=== PATIENT | male | born 1985 | race Two or more races ===

== ENCOUNTER 2019-03-31 19:30 | Emergency (ER) | payer SELFPAY ==
[2019-03-31 19:52] VITALS: BP 111/93; TEMP 97.9; BMI 30.7
[2019-03-31] MEDS ORDERED: LACTATED RINGERS SOLUTION 1000 ML INFUS.BAG IV ONE (20:49)
--- NOTE | 2019-03-31 20:53 | PDOC ---
History of Present Illness - General Chief Complaint: Syncope/Near Syncope Stated Complaint: SYNCOPE Time Seen by Provider: 03/31/19 20:17 History Source: Patient, Family, Spouse - History of Present Illness Initial Comments: 03/31/19 23:25 Mr. Flannery is a 33 y/o [place]alese speaking man with no PMH presenting after a syncopal episode at the [facility] with his family. He is accompanied by his as well as several other family members who they were with throughout the day. Past History - Past Medical History Allergies/Adverse Reactions: Allergies Allergy/AdvReac Type Severity Reaction Status Date / Time No Known Drug Allergies Allergy Verified 03/31/19 21:07 COPD: No - Immunization History Immunization Up to Date: (unknown) - Suicide/Smoking/Psychosocial Hx Smoking History: Current every day smoker Have you smoked in the past 12 months: Yes Number of Cigarettes Smoked Daily: 0 Information on smoking cessation initiated: Yes Hx Alcohol Use: No Drug/Substance Use Hx: Yes (hookah) Review of Systems - Review of Systems Able to Perform ROS?: Yes Comments:: 03/31/19 23:24 ROS: GENERAL/CONSTITUTIONAL: No fever or chills. No weakness. HEAD, EYES, EARS, NOSE AND THROAT: No change in vision. No ear pain or discharge. No sore throat. CARDIOVASCULAR: No chest pain or shortness of breath RESPIRATORY: No cough, wheezing, or hemoptysis. GASTROINTESTINAL: No nausea, vomiting, diarrhea or constipation. GENITOURINARY: No dysuria, frequency, or change in urination. MUSCULOSKELETAL: No joint or muscle swelling or pain. No neck or back pain. SKIN: No rash NEUROLOGIC: Headache. No vertigo, loss of consciousness, or change in strength/ sensation. ENDOCRINE: No increased thirst. No abnormal weight change HEMATOLOGIC/LYMPHATIC: No anemia, easy bleeding, or history of blood clots. ALLERGIC/IMMUNOLOGIC: No hives or skin allergy. *Physical Exam - Vital Signs Last Vital Signs Temp Pulse Resp BP Pulse Ox 97.9 F 118 H 14 111/93 95 03/31/19 19:46 03/31/19 19:46 03/31/19 19:46 03/31/19 19:46 03/31/19 19:46 - Physical Exam Comments: 03/31/19 23:13 PE: GENERAL: Awake, alert, and fully oriented, in no acute distress HEAD: No signs of trauma, normocephalic, atraumatic EYES: PERRLA, EOMI, sclera anicteric, conjunctiva clear ENT: Auricles normal inspection, hearing grossly normal, nares patent, oropharynx clear without exudates. Moist mucosa NECK: Normal ROM, supple, no lymphadenopathy, JVD, or masses LUNGS: No distress, speaks full sentences, clear to auscultation bilaterally HEART: Regular rate and rhythm, normal S1 and S2, no murmurs, rubs or gallops, peripheral pulses normal and equal bilaterally. ABDOMEN: Soft, nontender, normoactive bowel sounds. No guarding, no rebound. No masses EXTREMITIES : Normal inspection, Normal range of motion, no edema. No clubbing or cyanosis NEUROLOGICAL: Cranial nerves II through XII grossly intact. Normal speech, normal gait, no focal sensorimotor deficits SKIN: Warm, Dry, normal turgor, no rashes or lesions noted ED Treatment Course - LABORATORY CBC & Chemistry Diagram: 03/31/19 21:19 03/31/19 21:19 - RADIOLOGY Radiology Studies Ordered: Category Date Time Status HEAD CT WITHOUT CONTRAST [CT] Stat CT Scan 03/31/19 20:48 Ordered Medical Decision Making - Medical Decision Making 03/31/19 23:12 33 y/o M with no PMH presenting s/p syncopal episode, with Plan: CBC CMP EKG Cardiac Profile CT Head Ofirmev 1g IV LR 1L bolus Bedside cardiac echo Orthostatic vitals Dispo: Pending labs, imaging --- BP L arm - 139/89 BP R arm - 137/81 HR laying flat - 113 HR standing - 130 --- Cardiac echo: no pericardial effusion noted. R ventricle < L ventricle. Good squeeze noted, normal ejection fraction noted. Ultrasound conducted with Dr. Miller. --- CBC - WBC - 13.2 CMP - wnl EKG - wnl Troponin - negative On reassessment, HR 100. Plan to reassess HR after 1L LR. Likely discharge with PCP follow up. 03/31/19 23:37 On reassessment, HR 88. Discussed with Dr. Scott. Plan for outpatient follow up with close PCP follow up. *DC/Admit/Observation/Transfer Diagnosis at time of Disposition: Syncope Qualifiers: Syncope type: unspecified Qualified Code(s): R55 - Syncope and collapse - Discharge Dispostion Disposition: HOME Condition at time of disposition: Fair Decision to Admit order: No - Referrals - Patient Instructions Printed Discharge Instructions: DI for Syncope in Adults (Fainting) Additional Instructions: Usted fue evaluado en la paola de urgencias despues de desmallar. Evaluamos a kenyon niveles de tiffany, tomamos un CT de pascal jayme, y evaluamos a kenyon sintomas y todo a vuelto normal. Por favor ve a pascal doctor de cabezera la semana que viene. Regresa a la paola de urgencias si empiezas a tener dolor de jayme severa, dolor en pascal pecho, fiebres altos, confusion, o si se desmalla de nuevo. Print Language: TAMAZIGHT - Post Discharge Activity
[2019-03-31 21:25] LABS: BASO % 0.5 % (0-2.0); EOS % 0.1 % (0-4.5); HEMATOCRIT 44.9 % (35.4-49); HEMOGLOBIN 15.4 GM/dL (11.7-16.9); LYMPH % 11.4 % (8-40); MCH 28.9 pg (25.7-33.7); MCHC 34.2 g/dl (32.0-35.9); MEAN CELL VOLUME 84.6 fl (80-96); MEAN PLT VOLUME 7.3 fl (7.5-11.1); MONO % 4.2 % (3.8-10.2); NEUT % 83.8 % (42.8-82.8); PLATELET COUNT 326 K/MM3 (134-434); RBC 5.31 M/mm3 (4.00-5.60); RDW 14.3 % (11.9-15.9); WHITE BLOOD COUNT 13.9 K/mm3 (4.0-10.0)
[2019-03-31 21:53] LABS: ALBUMIN 4.4 g/dl (3.4-5.0); ALK PHOS 72 U/L (45-117); ANION GAP 6 MMOL/L (8-16); BILIRUBIN,TOTAL 0.2 mg/dL (0.2-1); BLOOD UREA NITROGEN 15.8 mg/dL (7-18); CALCIUM 9.9 mg/dL (8.5-10.1); CHLORIDE 104 mmol/L (98-107); CO2 29 mmol/L (21-32); CREATININE 1.2 mg/dL (0.55-1.3); GLUCOSE,RANDOM 102 mg/dL (74-106); POTASSIUM 3.9 mmol/L (3.5-5.1); SGOT/AST 21 U/L (15-37); SGPT/ALT 32 U/L (13-61); SODIUM 138 mmol/L (136-145); TOT PROT 7.8 g/dl (6.4-8.2)
[2019-03-31] MEDS ORDERED: ACETAMINOPHEN 1000 MG/100 ML VIAL (NON FORMULARY) IVPB ONE (22:08)
--- NOTE | 2019-03-31 22:19 | PDOC ---
Documentation entered by Syed Simon SCRIBE, acting as scribe for Sruthi Scott MD. Sruthi Scott MD: This documentation has been prepared by the aparnae, Syed Simon SCRIBE, under my direction and personally reviewed by me in its entirety. I confirm that the documentation accurately reflects all work, treatment, procedures, and medical decision making performed by me. Attending Attestation - Resident Resident Name: Kenneth Villasenor - ED Attending Attestation I have performed the following: I have examined & evaluated the patient, The case was reviewed & discussed with the resident, I agree w/resident's findings & plan - HPI HPI: 03/31/19 20:46 Patient is a 33 year old male with no reported past medical history who presents to the ED after having a syncopal episode. Patient reports that [place] and before syncopizing began to feel lightheaded, dizzy and strength leaving his body. As per family members, the patient was able to brace himself before losing consciousness. Patient notes that once he regained consciousness he felt dizzy and at this time only has a headache. Denies head trauma, neck pain, and back pain. Allergies: NKDA - Physicial Exam PE: 03/31/19 20:53 GENERAL: Awake, alert, and fully oriented, in no acute distress HEAD: No signs of trauma EYES: PERRLA, EOMI, sclera anicteric, conjunctiva clear ENT: Auricles normal inspection, hearing grossly normal, nares patent, oropharynx clear without exudates. Moist mucosa NECK: Normal ROM, supple, no lymphadenopathy, JVD, or masses LUNGS: Breath sounds equal, clear to auscultation bilaterally. No wheezes, and no crackles HEART: Regular rate and rhythm, normal S1 and S2, no murmurs, rubs or gallops ABDOMEN: Soft, nontender, normoactive bowel sounds. No guarding, no rebound. No masses EXTREMITIES: Normal range of motion, no edema. No clubbing or cyanosis. No cords, erythema, or tenderness NEUROLOGICAL: Cranial nerves II through XII grossly intact. Normal speech, normal gait SKIN: Warm, Dry, normal turgor, no rashes or lesions noted. - Medical Decision Making 03/31/19 21:33 Pt comes with dehydration. 03/31/19 22:19 Patient Name: SARA GANN THIS IS A PRELIMINARY REPORT FROM [facility] DATE OF SERVICE: 2019-03-31 21:42:36 IMAGES: 151 EXAM: HEAD CT WITHOUT CONTRAST HISTORY: loc COMPARISON: None. FINDINGS: There is no CT evidence of acute cortical territorial infarction, bleed, mass lesion, mass effect, hydrocephalus or abnormal extraaxial collection. No acute sinusitis or mastoiditis is identified. No acute skull fracture or calvarial lesion is noted. IMPRESSION: Negative unenhanced head CT examination 03/31/19 22:19 Labs normal; exam normal; CT head normal. Pt has normal vitals. Stable for discharge home
[2019-03-31] MEDS ORDERED: ACETAMINOPHEN INJECTION 100 ML IVPB ONE (22:22)
[2019-03-31 23:50] VITALS: PULSE 88
--- NOTE | 2019-04-01 09:37 | EKG ---
Test Reason : Blood Pressure : / mmHG Vent. Rate : 108 BPM Atrial Rate : 108 BPM P-R Int : 154 ms QRS Dur : 078 ms QT Int : 332 ms P-R-T Axes : 027 -13 003 degrees QTc Int : 444 ms SINUS TACHYCARDIA NONSPECIFIC T WAVE ABNORMALITY ABNORMAL ECG NO PREVIOUS ECGS AVAILABLE Confirmed by LAURA JENKINS, SONIA ([id number]) on 04/01/2019 9:36:36 AM Referred By: Confirmed By:SONIA SANCHEZ MD
== END 2019-03-31 23:48 | disposition home or self-care (01) ==
LOC: JER 19:30
PROC: 3E033NZ Introduction of Analgesics, Hypnotics, Sedatives into Peripheral Vein, Percutaneous Approach (ICD-10-PCS; principal; 2019-03-31)
PROC: 3E0337Z Introduction of Electrolytic and Water Balance Substance into Peripheral Vein, Percutaneous Approach (ICD-10-PCS; 2019-03-31)
DX: R55 Syncope and collapse (principal)
CPT/HCPCS: 36415; 70450-TC; 80053; 82550; 82553; 84484; 85025; 93005; 93010; 96374; 99284-25; J0131